=== PATIENT | male | born 1955 | race Caucasian/White ===

== ENCOUNTER 2018-03-26 08:17 | Emergency (ER) | payer OTHER, SELFPAY ==
[2018-03-26 08:40] LABS: Lavender RECEIVED; Red RECEIVED
[2018-03-26 08:48] LABS: #Basophils 0.1 thou/uL (0.0-0.2); #Eosinphils 0.2 thou/uL (0.0-0.7); #Lymphocytes 1.5 thou/uL (1.20-3.40); #Monocytes 0.6 thou/uL (0.11-0.59); #Neutrophils 3.5 thou/uL (1.40-6.50); %Basophils 0.9 % (0.0-1.0); %Eosinophils 3.2 % (0.0-10.0); %Lymphocytes 25.1 % (21.0-51.0); %Neutrophils 60.8 % (42.0-75.0); Hemoglobin 16.1 g/dL (14.0-18.0); Mean Corpuscular HGB CONC 33.9 g/dL (32.0-36.0); Mean Corpuscular Hemoglobin 32.6 pg (27.0-31.0); Mean Corpuscular Volume 96.4 fL (78.0-98.0); Platelet Count 172 thou/uL (130-400); RBC Distribution Width 11.5 % (11.5-14.5); Red Blood Cell (RBC) Count 4.94 mill/uL (4.70-6.10); White Blood Cell (WBC) Count 5.8 thou/uL (4.8-10.8)
[2018-03-26 09:12] LABS: ALT (SGPT) 18 U/L (8-55); AST (SGOT) 25 U/L (5-34); Albumin 4.1 g/dL (3.4-4.8); Alcohol Less than 10 mg/dL (Less than 10); Alkaline Phosphatase 81 U/L (40-150); Anion Gap 17 mmol/L (10-20); BUN (Urea Nitrogen) 10 mg/dL (8.4-25.7); Bilirubin, Total 0.4 mg/dL (0.2-1.2); Calc. Creatinine Clearance 0 mL/min (70-130); Calcium 9.2 mg/dL (7.8-10.44); Carbon Dioxide 20 mmol/L (23-31); Chloride 101 mmol/L (98-107); Estimated GFR-MDRD Greater than 90; Globulin 3.1 g/dL (2.4-3.5); Glucose 116 mg/dL (80-115); Potassium 4.1 mmol/L (3.5-5.1); Protein, Total 7.2 g/dL (5.8-8.1); Sodium 134 mmol/L (136-145)
[2018-03-26 09:19] LABS: Valproic Acid (Depakene) Less than 12.5 ug/mL (50.0-100.0)
[2018-03-26] MEDS ORDERED: Divalproex Sodium DR 500 MG TAB PO SCH (09:30)
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
[2018-03-26] MEDS ORDERED: Iopamidol 370 76% 50 ML VIAL FS ONE (12:21)
== END 2018-03-26 09:57 | disposition home or self-care (01) ==
LOC: ERS 08:17
DX: S16.1XXA Strain of muscle, fascia and tendon at neck level, initial encounter (principal); G40.909 Epilepsy, unspecified, not intractable, without status epilepticus; I72.3 Aneurysm of iliac artery; Z91.14 Patient's other noncompliance with medication regimen; F17.210 Nicotine dependence, cigarettes, uncomplicated; Z79.899 Other long term (current) drug therapy; V89.2XXA Person injured in unspecified motor-vehicle accident, traffic, initial encounter
CPT/HCPCS: 36415; 70450; 71260; 72125; 74177; 80053; 80164; 80307; 82140; 84146; 85025; 92950; 96360

== ENCOUNTER 2023-01-08 13:24 | Emergency (ER) | payer MEDICARE, SELFPAY ==
[~2023-01-08 13:24] MED LIST: Iopamidol-370 76% 500 ML MDV (1 ML CHARGE) ONE
[2023-01-08 15:10] LABS: #Eosinphils 0.2 thou/uL (0.0-0.7); #Neutrophils 3.9 thou/uL (1.40-6.50); %Basophils 0.6 % (0.0-1.0); %Eosinophils 2.2 % (0.0-10.0); %Lymphocytes 27.7 % (21.0-51.0); %Monocytes 13.9 % (0.0-10.0); %Neutrophils 55.3 % (42.0-75.0); Mean Corpuscular HGB CONC 35.9 g/dL (32.0-36.0); Mean Corpuscular Hemoglobin 33.7 pg (27.0-31.0); Mean Platelet Volume 9.2 fL (7.4-10.4); Platelet Count 180 10x3/uL (130-400); RBC Distribution Width 11.8 % (11.5-14.5); Red Blood Cell (RBC) Count 4.15 mill/uL (4.70-6.10)
[2023-01-08 15:32] LABS: ALT (SGPT) 27 U/L (8-55); AST (SGOT) 37 U/L (5-34); Albumin 4.4 g/dL (3.4-4.8); Alkaline Phosphatase 70 U/L (40-110); Anion Gap 14 mmol/L (10-20); BUN (Urea Nitrogen) Less than 4 mg/dL (8.4-25.7); Bilirubin, Total 0.4 mg/dL (0.2-1.2); Calc. Creatinine Clearance 0 mL/min (70-130); Calcium 9.2 mg/dL (7.8-10.44); Carbon Dioxide 23 mmol/L (23-31); Chloride 90 mmol/L (98-107); Estimated GFR 101; Globulin 2.4 g/dL (2.4-3.5); Glucose 88 mg/dL (80-115); Lipase 27 U/L (8-78); Potassium 3.5 mmol/L (3.5-5.1); Protein, Total 6.8 g/dL (5.8-8.1); Sodium 123 mmol/L (136-145)
[2023-01-08] MEDS ORDERED: Dicyclomine 20 MG TAB ONE (16:10)
== END 2023-01-08 19:01 | disposition home or self-care (01) ==
LOC: ERS 13:24
DX: I72.3 Aneurysm of iliac artery (principal); K52.9 Noninfective gastroenteritis and colitis, unspecified; I10 Essential (primary) hypertension; F17.210 Nicotine dependence, cigarettes, uncomplicated
CPT/HCPCS: 36415; 74177; 80053; 83690; 85025; 96360; Q9967